=== PATIENT | female | born 1965 | race Hispanic/Latino ===

== ENCOUNTER 2020-03-26 17:49 | Emergency (ER) | payer BC, OTHER ==
[2020-03-26] MEDS ORDERED: CEFTRIAXONE 1G VIAL ONE (18:52)
[2020-03-26] MEDS ORDERED: LIDOCAINE HCL-MPF 1% 2ML VIAL ONE (18:52)
[2020-03-26] MEDS ORDERED: KETOROLAC 30MG VIAL (30MG/ML) ONE (18:52)
== END 2020-03-26 19:34 | disposition home or self-care (01) ==
LOC: EDH 17:49
DX: S61.310A Laceration without foreign body of right index finger with damage to nail, initial encounter (principal); L02.818 Cutaneous abscess of other sites; W45.8XXA Other foreign body or object entering through skin, initial encounter; Y93.89 Activity, other specified; Y92.89 Other specified places as the place of occurrence of the external cause; Y99.8 Other external cause status
CPT/HCPCS: 10060; 87070; 87076; 87077; 87186; 96372 ×2; 99284; J0696; J1885; J3490

== ENCOUNTER 2022-02-20 13:39 | Emergency (ER) | payer OTHER ==
[~2022-02-20] VITALS: Ht 154.9 cm; Wt 91.6 kg
[2022-02-20 13:49] VITALS: BP 135/86
[2022-02-20] MEDS ORDERED: DICL20GE TP (15:21)
== END 2022-02-20 15:41 | disposition home or self-care (01) ==
LOC: EDH 13:39
DX: S86.911A Strain of unspecified muscle(s) and tendon(s) at lower leg level, right leg, initial encounter (principal); Z90.710 Acquired absence of both cervix and uterus; W18.2XXA Fall in (into) shower or empty bathtub, initial encounter; Y93.E1 Activity, personal bathing and showering; Y92.89 Other specified places as the place of occurrence of the external cause; Y99.8 Other external cause status
CPT/HCPCS: 73562